=== PATIENT | female | born 1960 | race Caucasian/White ===

== ENCOUNTER 2023-11-18 11:18 | Emergency (ER) | payer OTHER ==
[2023-11-18 11:49] VITALS: TEMP 98.1; BMI 27.4
[2023-11-18 13:02] LABS: EOS % 1.8 % (0-4.5); HEMATOCRIT 35.6 % (32.4-45.2); HEMOGLOBIN 12.1 GM/dL (10.7-15.3); LYMPH % 25.9 % (8-40); MCH 28.9 pg (25.7-33.7); MCHC 33.9 g/dl (32.0-36.0); MEAN CELL VOLUME 85.1 fl (80-96); MONO % 8.3 % (3.8-10.2); PLATELET COUNT 260 10^3/uL (134-434); RBC 4.18 M/mm3 (3.60-5.2); RDW 13.8 % (11.6-15.6); WHITE BLOOD COUNT 6.8 K/mm3 (4.0-10.0)
[2023-11-18 13:09] LABS: INR 1.09 (0.83-1.09); PROTHROMBIN TIME (PATIENT) 12.6 SEC (9.7-13.0)
[2023-11-18 13:12] LABS: ACTIVATED PTT 32.5 SECONDS (25.2-36.5)
[2023-11-18 13:21] LABS: POTASSIUM 4.3 mmol/L (3.5-5.1)
[2023-11-18 13:23] LABS: ALBUMIN 3.8 g/dl (3.4-5.0); BLOOD UREA NITROGEN 21.7 mg/dL (7-18); CALCIUM 10.2 mg/dL (8.5-10.1)
[2023-11-18 13:27] LABS: CREATININE 0.8 mg/dL (0.55-1.3)
[2023-11-18 13:28] LABS: BILIRUBIN,TOTAL 0.3 mg/dL (0.2-1); TOT PROT 7.5 g/dl (6.4-8.2)
[2023-11-18 15:33] VITALS: BP 144/65; PULSE 57; RESP 17
[2023-11-18 15:59] LABS: EPI CELLS 2 /uL (0-25.1); HYALINE CASTS 0 /uL (0-3.1); URINE APPEARANCE CLEAR; URINE BACTERIA 22 /uL (0-1359); URINE BILIRUBIN NEGATIVE (NEGATIVE); URINE COLOR YELLOW; URINE GLUCOSE (UA) NEGATIVE (NEGATIVE); URINE KETONE NEGATIVE (NEGATIVE); URINE LEUK ESTERASE TRACE (NEGATIVE); URINE NITRITE NEGATIVE (NEGATIVE); URINE PROTEIN NEGATIVE (NEGATIVE); URINE RBC 7 /uL (0-23.9); URINE UROBILINOGEN 0.2 mg/dL (0.2-1.0); URINE WBC 10 /uL (0-25.8)
== END 2023-11-18 17:32 | disposition home or self-care (01) ==
LOC: JER 11:18
DX: S60.211A Contusion of right wrist, initial encounter (principal); M25.531 Pain in right wrist; W01.0XXA Fall on same level from slipping, tripping and stumbling without subsequent striking against object, initial encounter; Z20.822 Contact with and (suspected) exposure to COVID-19
CPT/HCPCS: 0241U-QW; 36415; 70450-TC; 72125-TC; 73110-TC-RT-FY; 73130-TC-RT-FY; 80053; 81003; 84484; 85025; 85610; 85730; 87086; 99285-25